=== PATIENT | male | born 1950 | race Caucasian/White ===

== ENCOUNTER 2023-02-06 13:56 | Observation (INO) | payer OTHER, SELFPAY ==
[2023-02-06 13:57] VITALS: BP 150/71; PULSE 105; RESP 14; TEMP 36; O2SAT 98
[2023-02-06 14:00] VITALS: BMI 31.5
--- NOTE | 2023-02-06 14:12 | CT_ITS ---
HISTORY: headache, paresthesia. TECHNIQUE: Multiple axial images were obtained of the head without intravenous contrast. A radiation dose optimization technique was used for this scan. 259 images. COMPARISON: None. FINDINGS: BRAIN PARENCHYMA: Mild posterior occipital hypodensity bilaterally. Multiple foci and zones of low attenuation in the bilateral cerebral white matter compatible with chronic small vessel ischemic gliosis. No acute intra-axial hemorrhage identified. CSF SPACES: Generalized volume loss. No midline shift or other significant mass effect. No acute extra-axial hemorrhage seen. OTHER: Intact calvarium. Mild left maxillary sinus polypoid mucosal thickening. Unremarkable orbits. CT/Brain/Head without Contrast IMPRESSION: Mild posterior cerebral hypodensity, possible acute hypertensive encephalopathy or age-indeterminate infarct. No acute intracranial hemorrhage identified. Chronic involutional and white matter changes. Electronically Signed: Elissa Eaton MD at 14:46 EDT ,
--- NOTE | 2023-02-06 14:12 | EKG12_ITS ---
Test Reason : CP Blood Pressure : / mmHG Vent. Rate : 105 BPM Atrial Rate : 105 BPM P-R Int : 098 ms QRS Dur : 102 ms QT Int : 378 ms P-R-T Axes : 024 003 059 degrees QTc Int : 499 ms Sinus tachycardia with short [place] with frequent Premature ventricular complexes Nonspecific ST and T wave abnormality Abnormal ECG Confirmed by ALMA OVIEDO, JOHN ([id number]), editorial cartoonist MARIA ELENA CELESTE ([id number]) on 02/08/2023 1:24:51 PM Referred By: Confirmed By:JOHN MARQUEZ MD
[2023-02-06 14:26] LABS: Absolute Lymphocyte Count 2.51 X10^3/uL (0.83-4.51); Absolute Neutrophil Count 5.5 X10^3/uL (2.0-7.7); Basophil# 0.06 X10^3/uL; Basophil% 0.7 % (0-1); Eosinophil# 0.19 X10^3/uL; Eosinophils% 2.1 % (0-5); Hematocrit 40.3 % (40-54); Hemoglobin 14.1 g/dL (13.0-16.5); Lymphocyte # 2.51 X10^3/ul (0.83-4.51); Lymphocyte % 27.8 % (19-41); Mean Corpuscular Hgb 30.3 pg (27.0-32.0); Mean Corpuscular Volume 86.7 fL (80-94); Mean Platelet Vol. 9.3 fl (6.2-12.0); Monocyte# 0.75 X10^3/uL; Monocyte% 8.3 % (0-10); NRBC Flagged by Analyzer 0 % (0-5); Neutrophil # 5.48 X10^3/uL (2.7-7.7); Neutrophil % 60.8 % (47-70); Platelet Count 312 K/mm3 (150-450); RBC Distribution Width CV 13.3 % (11.6-14.6); RBC Distribution Width SD 41.9 fl (35.1-43.9); Red Blood Count 4.65 M/mm3 (4.6-6.2)
--- NOTE | 2023-02-06 14:33 | EDS_ITS ---
HPI <KAYLAN Rivas - Last Filed: 02/06/23 16:15> History of Present Illness Chief Complaint: Chest Pain Narrative Narrative: 73-year-old male with PMH of HTN, HLD, glaucoma, hypothyroidism presents with multiple complaints. 3 days ago he developed pain in his right eye and intermittent sharp pain in the right side of his head. Yesterday the pain moved to his left eye and the left face felt numb. Today his left arm feels numb. He also reports chest pain but then describes it as numbness and cannot really give details. He denies shortness of breath, nausea or vomiting, cough or upper respiratory symptoms, or diaphoresis. He denies vision loss or diplopia or motor changes. No difficulty with balance or coordination. No history of stroke or TIA. He is not on blood thinners. PFSH <KAYLAN Rivas - Last Filed: 02/06/23 16:15> [facility] Medical History (Updated 02/06/23 @ 16:14 by KAYLAN Rivas) Hypertension Hypothyroidism Home Medications Levothyroxine 100 mcg PO DAILY 05/29/15 [History Last Taken 06/07/15 05:00] aspirin 81 mg chewable tablet 81 mg PO QHS 05/29/15 [History Last Taken Unknown] ergocalciferol (vitamin D2) 1,250 mcg (50,000 unit) capsule (Vitamin D2) 50,000 unit PO MO 05/29/15 [History Last Taken Unknown] lisinopril 20 mg tablet 10 mg PO DAILY 05/29/15 [History Last Taken 06/07/15 05:00] metoprolol tartrate 50 mg tablet 25 mg PO .morning 05/29/15 [History Last Taken 06/07/15 05:00] multivitamin with folic acid 400 mcg tablet (Thera) 1 tab PO DAILY 05/29/15 [History Last Taken Unknown] terazosin 2 mg capsule 10 mg PO QHS 05/29/15 [History Last Taken Unknown] rosuvastatin 5 mg sprinkle capsule 5 mg PO .COMPLEX 02/06/23 [History Last Taken Unknown] Allergy/AdvReac Type Severity Reaction Status Date / Time atorvastatin calcium AdvReac Pain in Verified 02/06/23 14:00 [From Lipitor] joints azathioprine [From Imuran] AdvReac Nausea Verified 02/06/23 14:00 azathioprine sodium AdvReac Nausea Verified 02/06/23 14:00 [From Imuran] celecoxib [From Celebrex] AdvReac Nausea Verified 02/06/23 14:00 Social History Smoking Status: Former smoker ROS <KAYLAN Rivas - Last Filed: 02/06/23 16:15> ROS ED ROS Narrative Constitutional: Negative for fever, chills, malaise. ENT: Negative for sore throat, ear pain, rhinorrhea. CVS: As noted for chest pain. Negative for palpitations, syncope. Respiratory: Negative for shortness of breath, cough, orthopnea. GI: Negative for abdominal pain, nausea, vomiting, diarrhea, constipation, melena, hematochezia. Neuro: Negative for headache. Skin: Negative for rash. EXAM <KAYLAN Rivas - Last Filed: 02/06/23 16:15> Physical Exam Narrative Exam Narrative: CONST: Patient sitting in no acute distress. EYES: Normal inspection. PERRLA, EOMI. No visual field deficit. ENT: Normal inspection, moist mucous membranes. NECK: Normal inspection. RESP: No respiratory distress, CTAB. CVS: Regular rate and rhythm, no murmur, no gallop. ABD: Soft and nontender, no guarding or rebound, nondistended. SKIN: Color normal, no rash, warm, dry, intact. EXTREMITIES: Normal appearance, no pedal edema. NEURO: Oriented x4. No upper or lower extremity drift, 5/5 strength and normal sensation in face arms and legs, normal [id number] and [id number]-vf-[id number] bilaterally, normal gait, no aphasia or dysarthria, no extinction, NIH equals 0. PSYCH: Normal affect. Const Vital Signs: 02/06/23 13:57 02/06/23 14:08 Temperature 96.8 F L Temperature Source Temporal Pulse Rate 105 H Respiratory Rate 14 Respiratory Effort Normal Non-Labored Blood Pressure 150/71 H Blood Pressure Mean 97 Pulse Ox 98 Oxygen Delivery Method Room Air <Dr. Po Sutton, DO - Last Filed: 02/06/23 16:27> Physical Exam Const Vital Signs: 02/06/23 13:57 02/06/23 14:08 Temperature 96.8 F L Temperature Source Temporal Pulse Rate 105 H Respiratory Rate 14 Respiratory Effort Normal Non-Labored Blood Pressure 150/71 H Blood Pressure Mean 97 Pulse Ox 98 Oxygen Delivery Method Room Air [facility] <KAYLAN Rivas - Last Filed: 02/06/23 16:15> [facility] Narrative Medical decision making narrative: Patient presents with multiple complaints including bilateral eye pain, occasional sharp head pain, and left facial and left arm paresthesias. He appears well and nontoxic. BP is 150/71, heart rate 95-1 05, otherwise normal vital signs. On exam he has no neurological deficits and NIH is 0. His screening medical exam is benign. EKG is sinus tachycardia with frequent PVCs. It does not meet STEMI criteria. His first troponin is 112 and 2-hour delta is pending. He states he has no chest pain today. He is actually been describing his chest symptoms as pain but then also a numb sensation. Due to neurological complaints a CT brain was obtained and shows posterior cerebral hypodensity possibly age-indeterminate infarct. Patient will require admission for CVA work-up and further evaluation of cardiac enzymes Case discussed with the hospitalist for admission. Differential: TIA CVA, peripheral neuropathy Consults: Hospitalist Lab Data Attestation: I reviewed the patient's lab results. Labs: Laboratory Results - last 24 hr 02/06/23 14:10 WBC 9.0 RBC 4.65 Hgb 14.1 Hct 40.3 MCV 86.7 MCH 30.3 MCHC 35.0 RDW Std Deviation 41.9 RDW Coeff of Dean 13.3 Plt Count 312 MPV 9.3 Immature Gran % (Auto) 0.300 Neut % (Auto) 60.8 Lymph % (Auto) 27.8 [place] % (Auto) 8.3 Eos % (Auto) 2.1 Baso % (Auto) 0.7 Absolute Neuts (auto) 5.5 Absolute Lymphs (auto) 2.51 Nucleated RBC % 0 Sodium 135 L Potassium 3.7 Chloride 105 Carbon Dioxide 21.0 Anion Gap 9 BUN 23 H Creatinine 1.52 H Estim Creat Clear Calc 46.80 Est GFR (MDRD) Af Amer 58 L Est GFR (MDRD) Non-Af 48 L BUN/Creatinine Ratio 15.1 Glucose 109 H Calcium 9.1 Troponin I High Sens 112 H Radiography Diagnostic Testing: Clinical Impression(s) from Imaging Studies Brain CT 02/06/23 14:12 IMPRESSION: Mild posterior cerebral hypodensity, possible acute hypertensive encephalopathy or age-indeterminate infarct. No acute intracranial hemorrhage identified. Chronic involutional and white matter changes. Electronically Signed: Elissa Eaton MD at 14:46 EDT , Chest X-Ray 02/06/23 14:40 IMPRESSION: Mild left basilar atelectasis or inflammation. Electronically Signed: Elissa Eaton MD at 15:13 EDT , ED attending interpretation of 2- view chest x-ray shows normal heart size, no large infiltrate, edema, or effusion. <Dr. Po Sutton, DO - Last Filed: 02/06/23 16:27> [facility] Narrative Medical decision making narrative: Patient presents with multiple complaints including bilateral eye pain, occasional sharp head pain, and left facial and left arm paresthesias. He appears well and nontoxic. BP is 150/71, heart rate 95-1 05, otherwise normal vital signs. On exam he has no neurological deficits and NIH is 0. His screening medical exam is benign. EKG is sinus tachycardia with frequent PVCs. It does not meet STEMI criteria. His first troponin is 112 and 2-hour delta is pending. He states he has no chest pain today. He is actually been describing his chest symptoms as pain but then also a numb sensation. Due to neurological complaints a CT brain was obtained and shows posterior cerebral hypodensity possibly age-indeterminate infarct. Patient will require admission for CVA work-up and further evaluation of cardiac enzymes Case discussed with the hospitalist for admission. Differential: TIA CVA, peripheral neuropathy Consults: Hospitalist This patient was seen with a PA/[employer] [place] [employer] Individually assessed they patient including history and physical. I have reviewed everything on the chart that is available and agree with the documentation provided by the PA/[employer] [place] [employer] including discussion about the assessment, treatment plan, discussion, and return precautions. Patient presenting with multiple complaints. Includes both headache pain and bilateral eye pain. Is also complaining of facial numbness and left arm paresthesias. His NIH is actually 0. Stroke cardiac work-up was obtained. CT brain was ordered and it does show possible age-indeterminate stroke. CBC was normal. BMP also unremarkable. High-sensitivity troponin came back at 112 and states he is having chest pain and abnormal CT we did opted to admit him. Expressed to the hospitalist for admission. Lab Data Labs: Laboratory Results - last 24 hr 02/06/23 14:10 WBC 9.0 RBC 4.65 Hgb 14.1 Hct 40.3 MCV 86.7 MCH 30.3 MCHC 35.0 RDW Std Deviation 41.9 RDW Coeff of Dean 13.3 Plt Count 312 MPV 9.3 Immature Gran % (Auto) 0.300 Neut % (Auto) 60.8 Lymph % (Auto) 27.8 [place] % (Auto) 8.3 Eos % (Auto) 2.1 Baso % (Auto) 0.7 Absolute Neuts (auto) 5.5 Absolute Lymphs (auto) 2.51 Nucleated RBC % 0 Sodium 135 L Potassium 3.7 Chloride 105 Carbon Dioxide 21.0 Anion Gap 9 BUN 23 H Creatinine 1.52 H Estim Creat Clear Calc 46.80 Est GFR (MDRD) Af Amer 58 L Est GFR (MDRD) Non-Af 48 L BUN/Creatinine Ratio 15.1 Glucose 109 H Calcium 9.1 Troponin I High Sens 112 H Radiography Diagnostic Testing: Clinical Impression(s) from Imaging Studies Brain CT 02/06/23 14:12 IMPRESSION: Mild posterior cerebral hypodensity, possible acute hypertensive encephalopathy or age-indeterminate infarct. No acute intracranial hemorrhage identified. Chronic involutional and white matter changes. Electronically Signed: Elissa Eaton MD at 14:46 EDT , Chest X-Ray 02/06/23 14:40 IMPRESSION: Mild left basilar atelectasis or inflammation. Electronically Signed: Elissa Eaton MD at 15:13 EDT , Discharge Plan Dx/Rx/DC Orders Clinical Impression: Elevated troponin, Arm paresthesia, left, Abnormal brain CT Disposition Disposition: Acute Care Hospital [facility] Discharge Date/Time: 02/06/23 15:33
--- NOTE | 2023-02-06 14:40 | RAD_ITS ---
HISTORY: chest pain. TECHNIQUE: XR Chest 2 Views. COMPARISON: None. FINDINGS: CARDIOMEDIASTINAL BORDERS: Cardiac silhouette within normal limits in size. Mediastinal contour unremarkable. LUNGS: Mild linear left basilar opacities. PLEURA: No pleural effusion or pneumothorax seen. OSSEOUS STRUCTURES: Degenerative changes. RAD/Chest PA and Lateral IMPRESSION: Mild left basilar atelectasis or inflammation. Electronically Signed: Elissa Eaton MD at 15:13 EDT ,
[2023-02-06 14:42] LABS: Anion Gap 9 (5-15); BUN 23 mg/dL (7-18); BUN/Creat Ratio 15.1 RATIO (10-20); Calcium,Total 9.1 mg/dL (8.5-10.1); Chloride 105 mmol/L (98-107); Creatinine, Serum 1.52 mg/dL (0.70-1.30); EST Glomerular Filtration Rate 48 mL/min (>60); Est Glom Filt Rate - Afr Amer 58 mL/min (>60); Glucose 109 mg/dL (74-106); Potassium 3.7 mmol/L (3.5-5.1); Sodium Level 135 mmol/L (136-145); Troponin-I HS 112 pg/mL (3.0-78.0)
--- NOTE | 2023-02-06 15:22 | ED.RN ---
CATIE WAS CONTACTED AND IS AWARE OF PT BEING ADMITTED, IS TO CALL BACK.
[2023-02-06 15:29] VITALS: BP 154/75; PULSE 84; RESP 18; TEMP 36; O2SAT 96
--- NOTE | 2023-02-06 15:32 | PCM.HP.STD ---
HPI - General General Date of Admission: 02/06/23 Date of Service: 02/06/23 Chief Complaint: Multiple symptoms including numbness of right side of face than left side along with chest discomfort HPI Narrative SHANTEL ALONSO, is a 73 M who presents to ED for multiple complaints. He said he had pain first in the right eye and then moved to the left eye for about 1 week. Buckeye fluid accompanied pain over right side of forehead which then moved to the left side. 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 He then started having numbness on right side yesterday which is moved to the left side of the numbness. He said feels chest discomfort mainly xiphisternum, localized 2-3/6 intensity on exertion along with shortness of breath mainly on exertion and relieved at rest suspicious for angina. He has this symptom for about 2 weeks. 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 Denies associated symptoms of dizziness, numbness or diaphoresis. He had water around the heart, most likely pericardial effusion for which he required drainage/probably pericardiocentesis about and at that time he quit smoking and drinking alcohol. Prior to that he has been smoking 3 packs/day since teenage. Denies irregular bowel movement or burning micturition. No nausea vomiting or GI bleed. No fever. Past medical history hypertension, hypothyroidism polymyositis and pericarditis in 1996. Social history: Quit alcohol 1998. Started smoking 3 packs/day at young age 87 as a teenager and then quit in 1996. Family history: Her mother and father had cancer. [facility] Medical History Hypertension Hypothyroidism Home Medications Levothyroxine 100 mcg PO DAILY 05/29/15 [History Last Taken 06/07/15 05:00] aspirin 81 mg chewable tablet 81 mg PO QHS 05/29/15 [History Last Taken Unknown] ergocalciferol (vitamin D2) 1,250 mcg (50,000 unit) capsule (Vitamin D2) 50,000 unit PO MO 05/29/15 [History Last Taken Unknown] lisinopril 20 mg tablet 10 mg PO DAILY 05/29/15 [History Last Taken 06/07/15 05:00] metoprolol tartrate 50 mg tablet 25 mg PO .morning 05/29/15 [History Last Taken 06/07/15 05:00] multivitamin with folic acid 400 mcg tablet (Thera) 1 tab PO DAILY 05/29/15 [History Last Taken Unknown] terazosin 2 mg capsule 10 mg PO QHS 05/29/15 [History Last Taken Unknown] rosuvastatin 5 mg sprinkle capsule 5 mg PO .COMPLEX 02/06/23 [History Last Taken Unknown] Allergy/AdvReac Type Severity Reaction Status Date / Time atorvastatin calcium AdvReac Pain in Verified 02/06/23 14:00 [From Lipitor] joints azathioprine [From Imuran] AdvReac Nausea Verified 02/06/23 14:00 azathioprine sodium AdvReac Nausea Verified 02/06/23 14:00 [From Imuran] celecoxib [From Celebrex] AdvReac Nausea Verified 02/06/23 14:00 Social History Smoking Status: Former smoker ROS ROS Narrative Complete 14 ROS as per the patient and described in HPI No fever. No acute cough, URI, nausea, vomiting, diarrhea, hematemesis melena or GI bleed. History of BPH but no acute obstructive symptoms. History of polymyositis Denies burning micturition or alteration of bowel habit. Rest 14 ROS are negative except as mentioned HPI Vital Signs Vital Signs Vital Signs: 02/06/23 13:57 02/06/23 14:08 Temperature 96.8 F L Temperature Source Temporal Pulse Rate 105 H Respiratory Rate 14 Respiratory Effort Normal Non-Labored Blood Pressure 150/71 H Blood Pressure Mean 97 Pulse Ox 98 Oxygen Delivery Method Room Air Weight Weight: 232 lb 12.93 oz Body Mass Index (BMI) 31.5 Physical Exam Narrative General: Alert, Oriented x3, Cooperative HEENT: Atraumatic, PERRLA, EOMI, Normocephalic. No diplopia/quadrantanopsia hemianopia or anopia. Color vision intact. Mild increased intraocular pressure on palpation in both eyes. Oral: Oral mucosa moist. No Gingival or Mucosal Lesions/ Ulcerations Neck: Supple, No JVD, Negative Carotid Bruits Lungs: Air entry diminished in bilateral lung bases. No crepitation/rhonchi Cardiovascular: Regular rate, Regular Rhythm, Normal S1, Normal S2, No murmurs Abdomen: Bowel Sounds Present, Soft, Non Tender, Non-Distended : No renal angle tenderness. No suprapubic tenderness. Extremities: No edema, Capillary Refill Less than 3 Seconds Skin: No rashes, No breakdown Musculoskeletal: No Tenderness to Palpation of Joints or Extremities. ROM full and intact. Neurological: Cranial nerves II-XII grossly intact, DTR 2+/4. No acute focal neurological deficit. NIH stroke scale 0. Psych/Mental Status: Normal Affect, Appropriate. Results Lab / Micro Data 02/06/23 14:10 02/06/23 14:10 Labs: Laboratory Results - last 24 hr 02/06/23 14:10: WBC 9.0, RBC 4.65, Hgb 14.1, Hct 40.3, MCV 86.7, MCH 30.3, MCHC 35.0, RDW Std Deviation 41.9, RDW Coeff of Dean 13.3, Plt Count 312, MPV 9.3, Immature Gran % (Auto) 0.300, Neut % (Auto) 60.8, Lymph % (Auto) 27.8, [place] % (Auto) 8.3, Eos % (Auto) 2.1, Baso % (Auto) 0.7, Absolute Neuts (auto) 5.5, Absolute Lymphs (auto) 2.51, Nucleated RBC % 0, Sodium 135 L, Potassium 3.7, Chloride 105, Carbon Dioxide 21.0, Anion Gap 9, BUN 23 H, Creatinine 1.52 H, Estim Creat Clear Calc 46.80, Est GFR (MDRD) Af Amer 58 L, Est GFR (MDRD) Non-Af 48 L, BUN/Creatinine Ratio 15.1, Glucose 109 H, Calcium 9.1, Troponin I High Sens 112 H Radiology Impression Brain CT 02/06/23 14:12 IMPRESSION: Mild posterior cerebral hypodensity, possible acute hypertensive encephalopathy or age-indeterminate infarct. No acute intracranial hemorrhage identified. Chronic involutional and white matter changes. Electronically Signed: Elissa Eaton MD at 14:46 EDT , Chest X-Ray 02/06/23 14:40 IMPRESSION: Mild left basilar atelectasis or inflammation. Electronically Signed: Elissa Eaton MD at 15:13 EDT , Assessment & Plan Assessment/Plan (1) Unstable angina: (2) Left facial numbness: PLAN: Plan 1. Facial numbness suspicious for acute TIA/strokelike symptoms: Patient is being admitted in PCU. PT, OT, speech therapy/swallow evaluation and management, nursing NIH stroke scale, BP and glucose monitoring and control as per stroke protocol. TSH, A1c fasting lipid profile tomorrow AM. MRI brain and 2D echo with bubble contrast study ordered. Carotid Doppler ordered. Patient has increased creatinine therefore CT angiogram or MRA was not ordered. 2. Recent unstable angina with elevated troponin: JENNY risk score 4. First troponin 112. Cycle troponin enzymes. Depending upon troponins either stress test or patient will go for cardiac cath but patient creatinine is elevated therefore will wait for creatinine to get better. 2D echo with contrast ordered. Aspirin 325 mg was given in ED. Patient is on baby aspirin, carvedilol, nitro sublingual as needed. Patient has atorvastatin listed as allergy with pain in the joints. Patient is low-dose dose rosuvastatin and therefore continued. TSH and fasting lipid profile ordered. 3. Elevated creatinine unclear acute or chronic. BUN 23, creatinine 1.52, BUN/creatinine ratio 15.1. Probably chronic. IV fluid normal saline with 20 mEq IV KCl ordered. Monitor kidney function electrolytes. Mild hyponatremia sodium 135. 4. Mild hyperglycemia glucose 109: A1c ordered for tomorrow AM. 5. Hypertension: Patient on lisinopril 10 mg daily. Blood pressure is elevated. Hold lisinopril because of elevated creatinine. IV hydralazine ordered for systolic blood pressure more than 180 ABG 6. Other comorbidities include history of polymyositis,, BPH, hypothyroidism: TSH and free T4 ordered for tomorrow AM. Living will/advanced directive/end of life care: Patient does not have living will or advanced directive. Patient is not a danger to power of employment attorney for health. After discussion of benefits/risks procedures involved with full code, DNR CC arrest and DNR CC, the patient opted for DNRCC arrest with no intubation Patient doesn't want artificial life support including intubation, tube feed, ventilator and/chest compression, central venous catheter, vasopressor and DC shock if needed Total time spent in [id number] encounter in discussion of advanced directive 17 minutes. Laboratory Results 02/06/23 14:10: WBC 9.0, RBC 4.65, Hgb 14.1, Hct 40.3, MCV 86.7, MCH 30.3, MCHC 35.0, RDW Std Deviation 41.9, RDW Coeff of Dean 13.3, Plt Count 312, MPV 9.3, Immature Gran % (Auto) 0.300, Neut % (Auto) 60.8, Lymph % (Auto) 27.8, [place] % (Auto) 8.3, Eos % (Auto) 2.1, Baso % (Auto) 0.7, Absolute Neuts (auto) 5.5, Absolute Lymphs (auto) 2.51, Nucleated RBC % 0 Sodium 135 L, Potassium 3.7, Chloride 105, Carbon Dioxide 21.0, Anion Gap 9, BUN 23 H, Creatinine 1.52 H, Estim Creat Clear Calc 46.80, Est GFR (MDRD) Af Amer 58 L, Est GFR (MDRD) Non-Af 48 L, BUN/Creatinine Ratio 15.1, Glucose 109 H, Calcium 9.1, Troponin I High Sens 112 H Charges/Coding Visit Charges Inpatient E&M: 34264 Init Hosp L3 Procedures Hospitalists Procedures: 54027 Advncd Care Plan 30 Min
[2023-02-06 15:48] VITALS: BMI 30.9
--- NOTE | 2023-02-06 15:55 | ECHOD_ITS ---
Reason For Study: CVA Procedure This was a 2D Doppler, Color Flow transthoracic echocardiogram. Exam performed in department. Left Ventricle Normal LV size. Moderate concentric left ventricular hypertrophy. Left ventricular systolic function is normal. The estimated ejection fraction is 60 %. Stage 1 diastolic dysfunction. No regional wall motion abnormalities noted. Right Ventricle Normal RV size. Normal systolic function. Atria Normal left atrium. Normal right atrium. Bubble contrast study negative for right to left interatrial shunt. Mitral Valve Normal mitral valve. Tricuspid Valve Normal tricuspid valve. Aortic Valve Normal aortic valve. Pulmonic Valve Normal pulmonic valve. Great Vessels Normal aortic root. The pulmonary artery is normal size. Normal inferior vena cava. Pericardium/Pleural No pericardial effusion. Medication Performed a rapid injection of agitated mix of 9 cc saline and 1cc air to assess for atrial septal defect. MMode/2D Measurements & Calculations LVIDd: 5.7 cm IVSd: 1.5 cm LVOT diam: 2.7 cm LVIDs: 5.0 cm LVPWd: 1.6 cm FS: 11.9 % LVOT area: 5.5 cm2 Ao root diam: 4.4 cm LAV(MOD-bp): 52.2 ml LVAd ap4: 28.2 cm2 LAV(MOD-bp) Indexed: 23.2 ml/m2 LVLd ap4: 7.6 cm LAV(MOD-sp2): 66.1 ml EDV(MOD-sp4): 93.4 ml LAV(MOD-sp4): 40.6 ml EDV(sp4-el): 89.3 ml LVAs ap4: 17.3 cm2 LVLs ap4: 7.0 cm ESV(MOD-sp4): 37.4 ml ESV(sp4-el): 36.3 ml EF(MOD-sp4): 59.9 % EF(sp4-el): 59.3 % SV(MOD-sp4): 56.0 ml SV(sp4-el): 53.0 ml LA A4 area: 17.2 cm2 LA dimension(2D): 4.7 cm RA A4 area: 14.3 cm2 TAPSE: 2.0 cm Time Measurements MV dec time: 0.09 sec Doppler Measurements & Calculations MV E max anant: 50.2 cm/sec Lat Peak E' Anant: 4.0 cm/sec Med Peak E' Anant: 7.5 cm/sec MV A max anant: 86.8 cm/sec E/E' lat: 12.4 E/E' med: 6.7 MV E/A: 0.58 MV V2 max: 108.8 cm/sec MV dec slope: 789.4 cm/sec2 Ao V2 max: 82.1 cm/sec MV max P.7 mmHg Ao max P.7 mmHg MV V2 mean: 57.1 cm/sec Ao V2 mean: 49.4 cm/sec MV mean P.8 mmHg Ao mean P.3 mmHg MV V2 VTI: 18.7 cm Ao V2 VTI: 15.9 cm MVA(VTI): 3.4 cm2 AV (velocity ratio): 0.71 XENIA(I,D): 3.9 cm2 XENIA(V,D): 4.8 cm2 LV V1 max: 71.7 cm/sec SV(LVOT): 62.8 ml PA V2 max: 95.3 cm/sec LV V1 max P.1 mmHg PA V2 mean: 68.3 cm/sec LV V1 mean P.84 mmHg LV V1 mean: 42.3 cm/sec LV V1 VTI: 11.3 cm ECHO/Echo Complete Interpretation Summary Normal LV size. Left ventricular systolic function is normal. The estimated ejection fraction is 60 %. No regional wall motion abnormalities noted. Bubble contrast study negative for right to left interatrial shunt. Moderate concentric left ventricular hypertrophy. Stage 1 diastolic dysfunction. Ordering Physician: Hermann Guy Referring Physician: [facility] Performed By: Joanie Camacho RCS
--- NOTE | 2023-02-06 15:55 | CDU_ITS ---
Reason For Study: CVA Rt. Velocities/BP Lt. Velocities/BP Prox CCA 133.9/17 cm/sec. Prox CCA 174.1/26.1 cm/sec. Mid CCA 163.1/16 cm/sec. Mid CCA 152.1/18.8 cm/sec. Dist CCA 72.8/10.2 cm/sec. Dist CCA 126.6/20.6 cm/sec. Prox ICA 99.4/13.8 cm/sec. Prox ICA 85/15.7 cm/sec. Mid ICA 110.4/24.8 cm/sec. Mid ICA 97.1/24.5 cm/sec. Dist ICA 101/27.9 cm/sec. Dist ICA 85/17.9 cm/sec. Rt. ICA/CCA = 0.82. Lt. ICA/CCA = 0.64. Prox ECA 156.5 cm/sec. Prox ECA 68.5 cm/sec. Rt. Vert. 23.3/3.7 cm/sec. Lt. Vert. 69.6/19 cm/sec. Right Extracranial There is heterogeneous, irregular atherosclerotic plaque noted in the right common carotid artery. There is heterogeneous, irregular atherosclerotic plaque noted in the right internal carotid artery. There is heterogeneous, irregular atherosclerotic plaque noted in the right external carotid artery. Antegrade flow is noted in the right vertebral artery. Left Extracranial There is heterogeneous, irregular atherosclerotic plaque noted in the left common carotid artery. There is heterogeneous, irregular atherosclerotic plaque noted in the left internal carotid artery. There is heterogeneous, irregular atherosclerotic plaque noted in the left external carotid artery. Antegrade flow is noted in the left vertebral artery. Procedure Carotid Duplex [id number]. This is a Carotid Duplex examination using B-mode, color flow and specral Doppler. Exam performed portable in patient room. VL/Carotid Duplex Ultrasound Interpretation Summary Mild (<50%) stenosis right extracranial internal carotid. Mild (<50%) stenosis left extracranial internal carotid. Patent and antegrade vertebrals bilaterally. Ordering Physician: Hermann Guy Referring Physician: [facility] Performed By: Roya Workman RVT
--- NOTE | 2023-02-06 15:55 | EKG12_ITS ---
Test Reason : AM EKG Blood Pressure : / mmHG Vent. Rate : 069 BPM Atrial Rate : 069 BPM P-R Int : 158 ms QRS Dur : 108 ms QT Int : 440 ms P-R-T Axes : 072 027 069 degrees QTc Int : 471 ms Normal sinus rhythm Low voltage QRS ST & T wave abnormality, consider anterior ischemia Prolonged QT Abnormal ECG When compared with ECG of 06-FEB-2023 16:39, MANUAL COMPARISON REQUIRED, DATA IS UNCONFIRMED Confirmed by ALMA OVIEDO, JOHN ([id number]), newspaper managing editor MARIA ELENA CELESTE ([id number]) on 02/09/2023 9:44:06 AM Referred By: TARYN Confirmed By:JOHN MARQUEZ MD
[2023-02-06 15:56] VITALS: BP 146/71; PULSE 84; RESP 17; TEMP 36.5; O2SAT 95
[2023-02-06] MEDS: Aspirin 81 MG TAB.CHEW 324 MG PO (16:43)
[2023-02-06] MEDS: KCL 20MEQ in 0.9% NS 20 MEQ/1,000 ML IV.SOLN. 75 MEQ IV (16:44)
[2023-02-06 17:03] LABS: Phosphorus 2.8 mg/dL (2.5-4.9)
[2023-02-06 17:07] VITALS: BMI 30.9
[2023-02-06 17:19] LABS: Magnesium 2.2 mg/dL (1.6-2.6); Troponin-I HS 121 pg/mL (3.0-78.0)
[2023-02-06] MEDS: Enoxaparin 40 MG/0.4 ML Syringe SC (17:37)
[2023-02-06] MEDS: Enoxaparin 60 MG/0.6 ML Syringe SC (19:02)
[2023-02-06 19:55] VITALS: BP 159/70; PULSE 77; RESP 16; TEMP 36.3; O2SAT 95
[2023-02-06 20:25] VITALS: O2SAT 99
[2023-02-06 21:01] LABS: Troponin-I HS 115 pg/mL (3.0-78.0)
[2023-02-06] MEDS: Acetaminophen 325 MG Tablet 650 MG PO (22:05)
[2023-02-06 23:48] VITALS: BP 142/74; PULSE 70; RESP 16; TEMP 36.1; O2SAT 98
[2023-02-07 00:13] LABS: Bedside Glucose 85 mg/dL (74-106)
[2023-02-07 00:42] VITALS: BMI 30.9
[2023-02-07 03:46] VITALS: BP 132/63; PULSE 73; RESP 16; TEMP 36.3; O2SAT 95
[2023-02-07] MEDS: KCL 20MEQ in 0.9% NS 20 MEQ/1,000 ML IV.SOLN. 75 MEQ IV (05:08)
[2023-02-07] MEDS: Acetaminophen 325 MG Tablet 650 MG PO ×3 (05:09→20:48)
[2023-02-07] MEDS: Levothyroxine 100 MCG Tablet PO (05:09)
[2023-02-07] MEDS: Enoxaparin 100 MG/ML Syringe SC (05:09)
[2023-02-07 05:30] LABS: Absolute Lymphocyte Count 1.87 X10^3/uL (0.83-4.51); Absolute Neutrophil Count 3.2 X10^3/uL (2.0-7.7); Basophil# 0.05 X10^3/uL; Basophil% 0.8 % (0-1); Eosinophil# 0.26 X10^3/uL; Eosinophils% 4.4 % (0-5); Hematocrit 39.1 % (40-54); Hemoglobin 13.1 g/dL (13.0-16.5); Lymphocyte # 1.87 X10^3/ul (0.83-4.51); Lymphocyte % 31.4 % (19-41); Mean Corp Hgb Conc 33.5 g/dL (32-36); Mean Corpuscular Volume 89.5 fL (80-94); Mean Platelet Vol. 9.5 fl (6.2-12.0); Monocyte# 0.54 X10^3/uL; Monocyte% 9.1 % (0-10); NRBC Flagged by Analyzer 0 % (0-5); Neutrophil # 3.21 X10^3/uL (2.7-7.7); Platelet Count 272 K/mm3 (150-450); RBC Distribution Width CV 13.4 % (11.6-14.6); RBC Distribution Width SD 43.8 fl (35.1-43.9); Red Blood Count 4.37 M/mm3 (4.6-6.2)
[2023-02-07 06:09] VITALS: BP 151/66; PULSE 80; RESP 18; TEMP 36.2; O2SAT 95
[2023-02-07 06:10] LABS: Anion Gap 7 (5-15); BUN 17 mg/dL (7-18); BUN/Creat Ratio 15.6 RATIO (10-20); Calcium,Total 8.7 mg/dL (8.5-10.1); Chloride 110 mmol/L (98-107); Cholesterol 110 mg/dL (200); Creatinine, Serum 1.09 mg/dL (0.70-1.30); EST Glomerular Filtration Rate 70 mL/min (>60); Est Glom Filt Rate - Afr Amer 85 mL/min (>60); Estimated Creatinine Clearance 65.26 ml/min; Glucose 88 mg/dL (74-106); High Density Lipoprotein 36 mg/dL; Potassium 3.9 mmol/L (3.5-5.1); Sodium Level 138 mmol/L (136-145); T4 Free Direct 1.37 ng/dL (0.76-1.46); Thyroid Stim Hormone (TSH) 0.67 uIU/mL (0.358-3.74); Triglycerides 87 mg/dL; Very Low Density Lipoprotein 17 mg/dL (5-40)
[2023-02-07 06:59] VITALS: O2SAT 96
[2023-02-07 07:37] LABS: Hemoglobin A1c 5.6 % (3.8-5.6)
[2023-02-07 10:00] VITALS: BP 152/69; PULSE 83; RESP 16; TEMP 36.6; O2SAT 97
--- NOTE | 2023-02-07 10:00 | MRI_ITS ---
HISTORY: suspected acute stroke, facial numbness, extremity numbness. TECHNIQUE: Multiplanar and multisequence MR images of the brain were obtained without contrast. 285 images. COMPARISON: CT prior day. FINDINGS: BRAIN PARENCHYMA: Very mild periventricular white matter changes. No abnormal focus of restricted diffusion. No acute intracranial hemorrhage identified. CSF SPACES: Mild generalized volume loss. No significant midline shift or other mass effect.No extra-axial fluid collection. VASCULAR SYSTEM: Major intracranial flow voids are maintained. PARANASAL SINUSES AND MASTOID AIR CELLS: Small left maxillary sinus mucous retention cysts. Trace air in the left mastoid air cells. ORBITS: Bilateral lens resections. MRI/Brain without Contrast IMPRESSION: No evidence for acute infarct. Very mild chronic involutional and white matter changes. Electronically Signed: Elissa Eaton MD at 11:49 EDT ,
[2023-02-07] MEDS: Aspirin 81 MG TAB.CHEW PO (10:08)
[2023-02-07] MEDS: Multivitamins,Therapeutic Tablet 1 TABLET PO (10:08)
--- NOTE | 2023-02-07 10:19 | PCM.CONS.C ---
Assessment & Plan Assessment/Plan (1) Elevated troponin: PLAN: He does have a mildly elevated troponin with atypical chest discomfort as well as other symptomatology. With no EKG changes and no definitive chest discomfort my recommendation will be to pursue a noninvasive strategy with a stress test and an echocardiogram. Depending on the findings further recommendations will be made. This has been discussed with him the risk benefits alternatives and he understands and agrees to proceed. Thank you for allowing me to participate in the care of your patient. Please don't hesitate to call if any issues arise. HPI Consult Data Date of Consult: 02/07/23 HPI Narrative HPI Narrative: SHANTEL ALONSO, is a 73 M who presents with a history of hypertension hyperlipidemia glaucoma who started complaining of right eye pain intermittent sharp pain on the right side of his head as well as chest discomfort. He also had some left arm numbness. It is difficult to pin him down with details. He says that he is also a victim of agent orange. He has had no dizziness or diaphoresis no near syncope or syncope he was evaluated in the emergency room his EKG did not demonstrate any changes but his cardiac enzymes were mildly elevated and cardiology was called for further evaluation and management. He says that he had a previous reaction to stress test when he had a number of years ago but cannot tell us exactly what. He has not had any more chest pain since admission. [facility] Medical History Hypertension Hypothyroidism Home Medications Levothyroxine 100 mcg PO DAILY 05/29/15 [History Last Taken 06/07/15 05:00] aspirin 81 mg chewable tablet 81 mg PO QHS 05/29/15 [History Last Taken Unknown] ergocalciferol (vitamin D2) 1,250 mcg (50,000 unit) capsule (Vitamin D2) 50,000 unit PO MO 05/29/15 [History Last Taken Unknown] lisinopril 20 mg tablet 10 mg PO DAILY 05/29/15 [History Last Taken 06/07/15 05:00] metoprolol tartrate 50 mg tablet 25 mg PO .morning 05/29/15 [History Last Taken 06/07/15 05:00] multivitamin with folic acid 400 mcg tablet (Thera) 1 tab PO DAILY 05/29/15 [History Last Taken Unknown] terazosin 2 mg capsule 10 mg PO QHS 05/29/15 [History Last Taken Unknown] rosuvastatin 5 mg sprinkle capsule 5 mg PO .COMPLEX 02/06/23 [History Last Taken Unknown] Allergy/AdvReac Type Severity Reaction Status Date / Time atorvastatin calcium AdvReac Pain in Verified 02/06/23 14:00 [From Lipitor] joints azathioprine [From Imuran] AdvReac Nausea Verified 02/06/23 14:00 azathioprine sodium AdvReac Nausea Verified 02/06/23 14:00 [From Imuran] celecoxib [From Celebrex] AdvReac Nausea Verified 02/06/23 14:00 Social History Smoking Status: Former smoker ROS Constitutional Constitutional: Denies fever(s) or weight loss Eyes Eyes: Reports systems reviewed and no addt'l complaints, except as documented ENT HEENT: Reports systems reviewed and no addt'l complaints, except as documented Cardiovascular Cardiovascular: Denies chest pain at rest, chest pain with activity, dyspnea at rest, dyspnea on exertion, edema, palpitations or paroxysmal nocturnal dyspnea Respiratory/Chest Respiratory/Chest: Denies dyspnea on exertion, productive cough, shortness of breath at rest or shortness of breath with exertion Gastrointestinal Gastrointestinal: Denies change in bowel habits, nausea, vomiting or weight changes Genitourinary Genitourinary: Denies difficulty urinating Musculoskeletal Musculoskeletal: Denies joint stiffness or muscle weakness Integumentary Integumentary: Denies lesions Neurologic Neurologic: Denies dizziness or syncope Psychiatric Psychiatric: Denies anxiety Endocrine Endocrinology: Denies excessive sweating or fatigue Hematologic/Lymphatic Hematologic/Lymphatic: Denies anemia Allergic/Immunologic Allergic/Immunologic: Denies seasonal rhinorrhea Risk Stratification Risk Stratification Applicable: No Objective Data Vital Signs: Vital Signs Temp Pulse Resp BP Pulse Ox O2 Del Method 97.9 F 83 16 152/69 H 97 Room Air 02/07/23 10:00 02/07/23 10:00 02/07/23 10:00 02/07/23 10:00 02/07/23 10:00 02/07/23 10:00 Oxygen Delivery Method Room Air Weight: 228 lb 6.382 oz Body Mass Index (BMI) 30.9 Intake & Output: Intake and Output for Last 24 Hours 02/05/23 02/06/23 02/07/23 23:59 23:59 23:59 Intake Total 400 / 400 1302.5 / 1302.5 Balance 400 / 400 1302.5 / 1302.5 Lab / Micro Data 02/07/23 05:05 02/07/23 05:05 Labs: Laboratory Results - last 24 hr 02/06/23 14:10: WBC 9.0, RBC 4.65, Hgb 14.1, Hct 40.3, MCV 86.7, MCH 30.3, MCHC 35.0, RDW Std Deviation 41.9, RDW Coeff of Dean 13.3, Plt Count 312, MPV 9.3, Immature Gran % (Auto) 0.300, Neut % (Auto) 60.8, Lymph % (Auto) 27.8, Coffee % (Auto) 8.3, Eos % (Auto) 2.1, Baso % (Auto) 0.7, Absolute Neuts (auto) 5.5, Absolute Lymphs (auto) 2.51, Nucleated RBC % 0, Sodium 135 L, Potassium 3.7, Chloride 105, Carbon Dioxide 21.0, Anion Gap 9, BUN 23 H, Creatinine 1.52 H, Estim Creat Clear Calc 46.80, Est GFR (MDRD) Af Amer 58 L, Est GFR (MDRD) Non-Af 48 L, BUN/Creatinine Ratio 15.1, Glucose 109 H, Calcium 9.1, Troponin I High Sens 112 H 02/06/23 16:30: Phosphorus 2.8, Magnesium 2.2, Troponin I High Sens 121 H* 02/06/23 20:28: Troponin I High Sens 115 H 02/06/23 23:53: POC Glucose 85 02/07/23 05:05: WBC 6.0, RBC 4.37 L, Hgb 13.1, Hct 39.1 L, MCV 89.5, MCH 30.0, MCHC 33.5, RDW Std Deviation 43.8, RDW Coeff of Dean 13.4, Plt Count 272, MPV 9.5, Immature Gran % (Auto) 0.300, Neut % (Auto) 54.0, Lymph % (Auto) 31.4, Coffee % (Auto) 9.1, Eos % (Auto) 4.4, Baso % (Auto) 0.8, Absolute Neuts (auto) 3.2, Absolute Lymphs (auto) 1.87, Nucleated RBC % 0, Sodium 138, Potassium 3.9, Chloride 110 H, Carbon Dioxide 21.0, Anion Gap 7, BUN 17, Creatinine 1.09, Estim Creat Clear Calc 65.26, Est GFR (MDRD) Af Amer 85, Est GFR (MDRD) Non-Af 70, BUN/Creatinine Ratio 15.6, Glucose 88, Hemoglobin A1c 5.6, Calcium 8.7, Triglycerides 87, Cholesterol 110, LDL Cholesterol 57, VLDL Cholesterol 17, HDL Cholesterol 36 L, TSH 0.67, Free T4 1.37 Cardiology Labs/Tests 02/06/23 14:10: WBC 9.0, RBC 4.65, Hgb 14.1, Hct 40.3, MCV 86.7, MCH 30.3, MCHC 35.0, Plt Count 312, MPV 9.3, Immature Gran % (Auto) 0.300, Neut % (Auto) 60.8, Lymph % (Auto) 27.8, Coffee % (Auto) 8.3, Eos % (Auto) 2.1, Baso % (Auto) 0.7, Absolute Neuts (auto) 5.5, Nucleated RBC % 0, Sodium 135 L, Potassium 3.7, Chloride 105, Carbon Dioxide 21.0, Anion Gap 9, BUN 23 H, Creatinine 1.52 H, Est GFR (MDRD) Af Amer 58 L, Est GFR (MDRD) Non-Af 48 L, BUN/Creatinine Ratio 15.1, Glucose 109 H, Calcium 9.1 02/06/23 16:30: Phosphorus 2.8, Magnesium 2.2 02/07/23 05:05: WBC 6.0, RBC 4.37 L, Hgb 13.1, Hct 39.1 L, MCV 89.5, MCH 30.0, MCHC 33.5, Plt Count 272, MPV 9.5, Immature Gran % (Auto) 0.300, Neut % (Auto) 54.0, Lymph % (Auto) 31.4, Coffee % (Auto) 9.1, Eos % (Auto) 4.4, Baso % (Auto) 0.8, Absolute Neuts (auto) 3.2, Nucleated RBC % 0, Sodium 138, Potassium 3.9, Chloride 110 H, Carbon Dioxide 21.0, Anion Gap 7, BUN 17, Creatinine 1.09, Est GFR (MDRD) Af Amer 85, Est GFR (MDRD) Non-Af 70, BUN/Creatinine Ratio 15.6, Glucose 88, Hemoglobin A1c 5.6, Calcium 8.7, Triglycerides 87, Cholesterol 110, LDL Cholesterol 57, VLDL Cholesterol 17, HDL Cholesterol 36 L Rhythm: EKG: ECHO: Stress Test: Cardiac Cath: PCI: CT Surgery: Holter monitor: EPS: PPM: CXR: Chest CT Scan: Radiography Diagnostic Testing: Radiology Impression Brain CT 02/06/23 14:12 IMPRESSION: Mild posterior cerebral hypodensity, possible acute hypertensive encephalopathy or age-indeterminate infarct. No acute intracranial hemorrhage identified. Chronic involutional and white matter changes. Electronically Signed: Elissa Eaton MD at 14:46 EDT , Chest X-Ray 02/06/23 14:40 IMPRESSION: Mild left basilar atelectasis or inflammation. Electronically Signed: Elissa Eaton MD at 15:13 EDT ,
[2023-02-07] MEDS: Carvedilol 6.25 MG Tablet PO ×2 (11:57→20:48)
--- NOTE | 2023-02-07 14:05 | PN_ITS ---
Subjective Subjective Patient seen and examined. He complained of some numbness over his cheeks bilaterally. He denied any dizziness, lightheadedness, palpitations, chest pain or any other symptoms. Review of systems was otherwise negative. Objective Data Objective Data Vital Signs: Vital Signs Temp Pulse Resp BP Pulse Ox O2 Del Method 97.9 F 83 16 152/69 H 97 Room Air 02/07/23 10:00 02/07/23 10:00 02/07/23 10:00 02/07/23 10:00 02/07/23 10:00 02/07/23 10:00 Oxygen Delivery Method Room Air Weight: 228 lb 6.382 oz Body Mass Index (BMI) 30.9 Intake & Output: Intake and Output for Last 24 Hours 02/05/23 02/06/23 02/07/23 23:59 23:59 23:59 Intake Total 400 / 400 1302.5 / 1302.5 Balance 400 / 400 1302.5 / 1302.5 Lab / Micro Data 02/07/23 05:05 02/07/23 05:05 Labs: Laboratory Results - last 24 hr 02/06/23 14:10: WBC 9.0, RBC 4.65, Hgb 14.1, Hct 40.3, MCV 86.7, MCH 30.3, MCHC 35.0, RDW Std Deviation 41.9, RDW Coeff of Dean 13.3, Plt Count 312, MPV 9.3, Immature Gran % (Auto) 0.300, Neut % (Auto) 60.8, Lymph % (Auto) 27.8, [place] % (Auto) 8.3, Eos % (Auto) 2.1, Baso % (Auto) 0.7, Absolute Neuts (auto) 5.5, Absolute Lymphs (auto) 2.51, Nucleated RBC % 0, Sodium 135 L, Potassium 3.7, Chloride 105, Carbon Dioxide 21.0, Anion Gap 9, BUN 23 H, Creatinine 1.52 H, Estim Creat Clear Calc 46.80, Est GFR (MDRD) Af Amer 58 L, Est GFR (MDRD) Non-Af 48 L, BUN/Creatinine Ratio 15.1, Glucose 109 H, Calcium 9.1, Troponin I High Sens 112 H 02/06/23 16:30: Phosphorus 2.8, Magnesium 2.2, Troponin I High Sens 121 H* 02/06/23 20:28: Troponin I High Sens 115 H 02/06/23 23:53: POC Glucose 85 02/07/23 05:05: WBC 6.0, RBC 4.37 L, Hgb 13.1, Hct 39.1 L, MCV 89.5, MCH 30.0, MCHC 33.5, RDW Std Deviation 43.8, RDW Coeff of Dean 13.4, Plt Count 272, MPV 9.5, Immature Gran % (Auto) 0.300, Neut % (Auto) 54.0, Lymph % (Auto) 31.4, [place] % (Auto) 9.1, Eos % (Auto) 4.4, Baso % (Auto) 0.8, Absolute Neuts (auto) 3.2, Absolute Lymphs (auto) 1.87, Nucleated RBC % 0, Sodium 138, Potassium 3.9, Chloride 110 H, Carbon Dioxide 21.0, Anion Gap 7, BUN 17, Creatinine 1.09, Estim Creat Clear Calc 65.26, Est GFR (MDRD) Af Amer 85, Est GFR (MDRD) Non-Af 70, BUN/Creatinine Ratio 15.6, Glucose 88, Hemoglobin A1c 5.6, Calcium 8.7, Triglycerides 87, Cholesterol 110, LDL Cholesterol 57, VLDL Cholesterol 17, HDL Cholesterol 36 L, TSH 0.67, Free T4 1.37 Radiography Diagnostic Testing: Radiology Impression Brain CT 02/06/23 14:12 IMPRESSION: Mild posterior cerebral hypodensity, possible acute hypertensive encephalopathy or age-indeterminate infarct. No acute intracranial hemorrhage identified. Chronic involutional and white matter changes. Electronically Signed: Elissa Eaton MD at 14:46 EDT , Chest X-Ray 02/06/23 14:40 IMPRESSION: Mild left basilar atelectasis or inflammation. Electronically Signed: Elissa Eaton MD at 15:13 EDT , Brain MRI 02/07/23 10:00 IMPRESSION: No evidence for acute infarct. Very mild chronic involutional and white matter changes. Electronically Signed: Elissa Eaton MD at 11:49 EDT Reading Location ID and State: [facility] / [place] Tel , Service support , Physical Exam Const alert, oriented x3 and no apparent distress General Appearance: cooperative HEENT head/scalp atraumatic, moist oral mucous membranes and oropharynx normal Neck no lymphadenopathy, supple and no JVD Resp normal respiratory effort, normal air movement and clear to auscultation bilaterally Cardio regular rate, regular rhythm, S1 normal heart sound, S2 normal heart sound and no murmurs GI normal to inspection, nondistended, normoactive bowel sounds, soft to palpation, non-tender and non-distended Extremity normal capillary refill, no clubbing, cyanosis or edema and no calf tenderness Skin General Skin Exam: no breakdown Neuro CN's II-XII intact bilaterally, no focal motor deficits, no sensory deficits noted and deep tendon reflexes 2+ bilaterally Psych thought process normal, cooperative and affect normal Appearance: appropriate Assessment & Plan Assessment/Plan (1) Elevated troponin: (2) Left facial numbness: PLAN: Plan #Probable TIA * Complained of facial numbness. It started on the right and then went to the left. 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 * CT of the brain done was negative for any evidence of stroke. He did have an MRI today which was also negative for stroke. * PT.OT on board. On aspirin 81mg daily * CTA head and neck showed no evidence of stroke. * #Chest pain * he did have mildly elevated troponins. Didnt have any chest pain at time of review * SL nitroglycerin prn. PO aspirin 81mg daily * cardiology consulted. For stress test tomorrow. * on carvedilol * #Elevated Cr: resolved #Hypertension; on lisinopril which was held due to elevated Cr. Will resume in light of resolution of elevated Cr. Also on on carvedilol #Hypothyroidism: on synthroid #BPH: on flomax #History of polymyositis: stable DVT prophylaxis: on lovenox Charges/Coding Visit Charges Inpatient E&M: 55940 Subs Hosp L2
[2023-02-07 15:45] VITALS: BMI 30.9
[2023-02-07 16:05] VITALS: BP 156/80; PULSE 72; RESP 17; TEMP 36.6; O2SAT 97
[2023-02-07] MEDS: Doxazosin 4 MG Tablet 8 MG PO (20:48)
[2023-02-07 21:22] VITALS: BP 146/74; PULSE 70; RESP 16; TEMP 36.4; O2SAT 94
[2023-02-08 03:20] VITALS: BP 140/75; PULSE 78; RESP 18; TEMP 36.4; O2SAT 94
[2023-02-08 05:31] VITALS: BP 148/63; PULSE 73; RESP 16; TEMP 36.3; O2SAT 93; BMI 31.0
[2023-02-08] MEDS: Acetaminophen 325 MG Tablet 650 MG PO (05:45)
[2023-02-08] MEDS: Multivitamins,Therapeutic Tablet 1 TABLET PO (05:47)
[2023-02-08] MEDS: Levothyroxine 100 MCG Tablet PO (05:47)
[2023-02-08] MEDS: Ergocalciferol 1.25 MG (50, 000 UNIT) Capsule PO (05:47)
[2023-02-08] MEDS: Lisinopril 10 MG Tablet PO (05:47)
[2023-02-08] MEDS: Aspirin 81 MG TAB.CHEW PO (05:48)
--- NOTE | 2023-02-08 05:55 | EKG12_ITS ---
Test Reason : ADMISSION Blood Pressure : / mmHG Vent. Rate : 086 BPM Atrial Rate : 086 BPM P-R Int : 164 ms QRS Dur : 108 ms QT Int : 380 ms P-R-T Axes : 046 009 028 degrees QTc Int : 454 ms Normal sinus rhythm T wave abnormality, consider anterior ischemia Abnormal ECG When compared with ECG of 06-FEB-2023 14:04, MANUAL COMPARISON REQUIRED, DATA IS UNCONFIRMED Confirmed by ALMA OVIEDO, JOHN ([id number]), news copy editor MARIA ELENA CELESTE ([id number]) on 02/09/2023 9:45:12 AM Referred By: CHANGE Confirmed By:JOHN MARQUEZ MD
[2023-02-08 06:00] VITALS: BMI 31.1
[2023-02-08 06:16] LABS: Absolute Lymphocyte Count 1.66 X10^3/uL (0.83-4.51); Absolute Neutrophil Count 3.2 X10^3/uL (2.0-7.7); Basophil# 0.05 X10^3/uL; Basophil% 0.9 % (0-1); Eosinophil# 0.26 X10^3/uL; Eosinophils% 4.5 % (0-5); Hematocrit 40.9 % (40-54); Hemoglobin 13.8 g/dL (13.0-16.5); Lymphocyte # 1.66 X10^3/ul (0.83-4.51); Mean Corp Hgb Conc 33.7 g/dL (32-36); Mean Corpuscular Hgb 30.2 pg (27.0-32.0); Mean Corpuscular Volume 89.5 fL (80-94); Mean Platelet Vol. 9.8 fl (6.2-12.0); Monocyte# 0.51 X10^3/uL; Monocyte% 8.9 % (0-10); NRBC Flagged by Analyzer 0 % (0-5); Neutrophil # 3.23 X10^3/uL (2.7-7.7); Neutrophil % 56.5 % (47-70); Platelet Count 309 K/mm3 (150-450); RBC Distribution Width CV 13.3 % (11.6-14.6); RBC Distribution Width SD 43.5 fl (35.1-43.9); Red Blood Count 4.57 M/mm3 (4.6-6.2); White Blood Count 5.7 K/mm3 (4.4-11.0)
[2023-02-08 06:51] LABS: Anion Gap 6 (5-15); BUN 14 mg/dL (7-18); BUN/Creat Ratio 13.3 RATIO (10-20); Calcium,Total 9.1 mg/dL (8.5-10.1); Chloride 106 mmol/L (98-107); Creatinine, Serum 1.05 mg/dL (0.70-1.30); EST Glomerular Filtration Rate 73 mL/min (>60); Est Glom Filt Rate - Afr Amer 89 mL/min (>60); Estimated Creatinine Clearance 67.75 ml/min; Glucose 84 mg/dL (74-106); Sodium Level 135 mmol/L (136-145)
[2023-02-08 09:20] VITALS: BP 150/77; PULSE 84; RESP 16; TEMP 36.3; O2SAT 96
[2023-02-08 09:45] VITALS: O2SAT 95
--- NOTE | 2023-02-08 13:28 | DS.PCM_ITS ---
Providers Date of Admission: 02/06/23 Date of Discharge: 02/08/23 Primary Care Physician: DC Hospital Consultations 02/06/23 18:19 Consult: Cardiology Routine Consulting Provider: Vivek Bhagat Reason for Consult: Unstable angina/NSTEMI EMERGENT Consult: No MD Notified: Yes Date Notified: 02/06/23 Time Notified: 18:19 Method of Notification: Verbal Reason For Visit: MULTIPLE SYMPTOMS Diagnosis Discharge Diagnosis (1) Elevated troponin: Status: Acute Code(s): R77.8 - Other specified abnormalities of plasma proteins (2) Left facial numbness: Status: Acute Code(s): R20.0 - Anesthesia of skin Plan #Probable TIA * Complained of facial numbness. It started on the right and then went to the left. 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 * CT of the brain done was negative for any evidence of stroke. He did have an MRI today which was also negative for stroke. * PT.OT on board. On aspirin 81mg daily * CTA head and neck showed no evidence of stroke. * #Chest pain * he did have mildly elevated troponins. Didnt have any chest pain at time of review * SL nitroglycerin prn. PO aspirin 81mg daily * cardiology consulted. For stress test tomorrow. * on carvedilol * #Elevated Cr: resolved #Hypertension; on lisinopril which was held due to elevated Cr. Will resume in light of resolution of elevated Cr. Also on on carvedilol #Hypothyroidism: on synthroid #BPH: on flomax #History of polymyositis: stable DVT prophylaxis: on lovenox Medications at Discharge Home Medications Levothyroxine 100 mcg PO DAILY 05/29/15 aspirin 81 mg chewable tablet 81 mg PO QHS 05/29/15 ergocalciferol (vitamin D2) 1,250 mcg (50,000 unit) capsule (Vitamin D2) 50,000 unit PO MO 05/29/15 lisinopril 20 mg tablet 10 mg PO DAILY 05/29/15 multivitamin with folic acid 400 mcg tablet (Thera) 1 tab PO DAILY 05/29/15 terazosin 2 mg capsule 10 mg PO QHS 05/29/15 rosuvastatin 5 mg sprinkle capsule 5 mg PO .COMPLEX 02/06/23 carvedilol 6.25 mg tablet 6.25 mg PO BID #60 tabs 02/08/23 Hospital Course Operations None Procedures Stress test Summary of Care Provided Minutes Spent on Discharge: 44 Hospital Course: Patient is a 73-year-old male with a past medical history as outlined was admitted through the ED with a series of vague complaints. He complained of numbness on the right side of his face which then went to the left side. He also said he had had pain in his right eye and then moved to the left eye for about a week prior to admission. He had seen an service aide a few days before he was given eyedrops for glaucoma. He also complained of some chest pain which was retrosternal and said it was worsened with exertion. He said he had had it for about 2 weeks. Review of symptoms otherwise negative. He was admitted to rule out a stroke and chest pain to rule out ACS. He had CT of the brain which showed no acute intracranial pathology. Troponins wre slightly elevated. MRI of the brain also showed no evidence of a stroke. Cardiology was consulted and patient had a stress test which showed no evidence of ischemia. Of note his troponins were not elevated and EKG showed no acute ST changes. Patient essentially remained stable and was discharged home on 02/08/2023. He is to follow-up with his primary care doctor within 1 to 2 weeks. Patient seen and examined prior to discharge. He had no complaints and had an uneventful night. Review of systems otherwise negative. Labs and vitals reviewed. Home medication reviewed and reconciled. Physical Exam Const alert, oriented x3 and no apparent distress General Appearance: cooperative and comfortable HEENT normocephalic, head/scalp atraumatic, hearing grossly normal bilaterally, moist oral mucous membranes and oropharynx normal Mouth: oral and palatal mucosa normal Eyes PERRL, EOMs intact bilaterally and conjunctivae normal Neck no lymphadenopathy, supple and no JVD Resp normal respiratory effort, normal air movement, no retractions, no use of accessory muscles and clear to auscultation bilaterally Cardio regular rate, regular rhythm, S1 normal heart sound, S2 normal heart sound and no murmurs GI normal to inspection, nondistended, normoactive bowel sounds, soft to palpation, non-tender and non-distended Extremity normal to inspection, full ROM, normal capillary refill, no clubbing, cyanosis or edema and no calf tenderness Skin no rashes or lesions noted, no wounds and skin turgor normal General Skin Exam: no breakdown Neuro oriented x3, CN's II-XII intact bilaterally, moves all extremities, no focal motor deficits, no sensory deficits noted and deep tendon reflexes 2+ bilaterally Sensorium / Orientation: awake and alert Motor Exam: strength 5/5 throughout Psych thought process normal, cooperative and affect normal Appearance: appropriate Weight / BMI Weight Weight: 229 lb 11.547 oz Body Mass Index (BMI) 31.1 ABG / Lab / Microbiology Data 02/08/23 05:34 02/08/23 05:34 Laboratory: Laboratory Results - last 24 hr 02/08/23 05:34: WBC 5.7, RBC 4.57 L, Hgb 13.8, Hct 40.9, MCV 89.5, MCH 30.2, MCHC 33.7, RDW Std Deviation 43.5, RDW Coeff of Dean 13.3, Plt Count 309, MPV 9.8, Immature Gran % (Auto) 0.200, Neut % (Auto) 56.5, Lymph % (Auto) 29.0, Daniels % (Auto) 8.9, Eos % (Auto) 4.5, Baso % (Auto) 0.9, Absolute Neuts (auto) 3.2, Absolute Lymphs (auto) 1.66, Nucleated RBC % 0, Sodium 135 L, Potassium 4.0, Chloride 106, Carbon Dioxide 23.0, Anion Gap 6, BUN 14, Creatinine 1.05, Estim Creat Clear Calc 67.75, Est GFR (MDRD) Af Amer 89, Est GFR (MDRD) Non-Af 73, BUN/Creatinine Ratio 13.3, Glucose 84, Calcium 9.1 Radiography Diagnostic Testing: Radiology Impression Carotid Duplex 02/06/23 15:55 Interpretation Summary Mild (<50%) stenosis right extracranial internal carotid. Mild (<50%) stenosis left extracranial internal carotid. Patent and antegrade vertebrals bilaterally. Ordering Physician: Hermann Guy Referring Physician: [facility] Performed By: Roya Workman, RVT Echocardiogram 02/06/23 15:55 Interpretation Summary Normal LV size. Left ventricular systolic function is normal. The estimated ejection fraction is 60 %. No regional wall motion abnormalities noted. Bubble contrast study negative for right to left interatrial shunt. Moderate concentric left ventricular hypertrophy. Stage 1 diastolic dysfunction. Ordering Physician: Hermann Guy Referring Physician: [facility] Performed By: Joanie Camacho RCS D/C Instructions Discharge Diet: Low fat / Low cholesterol Discharge Activity: Return to Normal Activity Weight Bearing Status: Weight bearing as tolerated Call your doctor if you observe: Fever of 101 or Higher, Shortness of breath, Dizziness, Swelling in the ankles, Chest pain and Increased palpitations (irregular heartbeat) Meaningful Use Info Meaningful Use Diagnoses (Choose all that apply): None applicable Discharge Plan Admission Admit Date/Time: 02/06/23 15:08 Primary Reason for Your Visit: chest pain Attending Provider: Dorys Woods Primary Care Provider: [facility],[place] Consulting Providers: Vivek Bhagat; Hermann Guy Instructions Patient Instructions: Chest Pain O Discharge Orders/Prescriptions Prescriptions: New carvedilol 6.25 mg Tablet 6.25 mg PO BID Qty: 60 2RF Continued lisinopril 20 MG tablet 10 mg PO DAILY terazosin 2 MG capsule 10 mg PO QHS aspirin 81 MG tablet,chewable 81 mg PO QHS ergocalciferol (vitamin D2) [Vitamin D2] 50,000 UNIT capsule 50,000 unit PO MO Patient Comments: WEDNESDAY multivitamin with folic acid [Thera] 1 TABLET tablet 1 tab PO DAILY Levothyroxine 100 mcg PO DAILY rosuvastatin 5 mg capsule, sprinkle 5 mg PO .COMPLEX Rx Instructions: 5 mg orally wednesday, wednesday, wednesday; Discontinued metoprolol tartrate 50 MG tablet 25 mg PO .morning Rx Instructions: patient takes 12.5 mg at bedtime Referrals / Follow Up: Vivek Bhagat MD [Med Staff - Active Staff] - Within 1 Month [facility] [Primary Care Provider] - Within 2 Weeks Disposition Disposition (needs filled in before D/C Order can be placed): Home, Self Care Charges/Coding Visit Charges Inpatient E&M: 44791 Disch Hosp >30min
--- NOTE | 2023-02-08 13:28 | CASEMGMT ---
CARLOS CM in to complete AYERS form with patient. RN SHAHRIAR explained AYERS form to patient, patient voiced understanding. Patient signed AYERS form and filed in chart. Patient provided with copy of signed AYERS Form. Patient had no further questions or concerns at this time.
[2023-02-08 13:36] LABS: Bedside Glucose 84 mg/dL (74-106)
--- NOTE | 2023-02-08 14:49 | STRESSREP ---
Stress Test Report Pharmacologic myocardial perfusion stress test. 73-year-old male with a history of chest pain Resting EKG demonstrates sinus rhythm with a rate of 81 bpm. Frequent premature ventricular complexes are present. Resting blood pressure is 150/68 mmHg. 0.4 mg of regadenoson was infused per usual protocol followed by rapid intravenous saline flush injection. Continuous EKG monitoring was performed. The maximum heart rate was 102 bpm which was 69% of max impacted heart rate the maximum workload was 1 metabolic equivalent. At rest there were no ST or T wave changes noted to suggest ischemia and at peak infusion nonspecific ST changes were noted which did not meet the criteria for ischemia. No clinical angina is noted. The final blood pressure was 152/64 mmHg. Myocardial perfusion protocol. 11.6 mCi of technetium 99m sestamibi was injected at rest. 0.4 mg of regadenoson was infused per usual protocol. At peak infusion 34.8 mCi of technetium 99m sestamibi was injected stress images were obtained stress and rest images were reconstructed and compared in the short axis vertical long and horizontal long axis. Gated images were also obtained. Perfusion SPECT analysis: Review of the stress images demonstrate normal uptake of tracer noted in all areas of the myocardium. The resting images similar demonstrated normal uptake of tracer noted in all areas of the myocardium. No areas of reversibility are noted to suggest ischemia and no previous infarct is noted. Gated SPECT analysis: The gated ejection fraction is 55%. Conclusion: Normal pharmacologic myocardial perfusion stress test. Preserved ejection fraction.
[2023-02-08 15:03] VITALS: BP 161/88; PULSE 91; RESP 18; TEMP 36.6; O2SAT 93
--- NOTE | 2023-02-08 15:23 | PHA.DC.MC.R ---
Pharmacy [facility] has performed discharge medication reconciliation and counseling for this patient. Duplicate carvedilol because one was rejected by pharmacy. 1. CARVEDILOL 6.25MG PO BID The patient's discharge medication list was reviewed for discrepancies and discrepancies were resolved. The patient was counseled on the following discharge medications and changes in medications for homegoing were reviewed. The Reason for Use, instructions for use, and potential side effects were reviewed for all new medications. The patient's questions regarding all of their medications were answered. The patient was able to verbally demonstrate an understanding of their discharge medications. Patient counseled by pharmacy delivery driverSherine. Medications at Discharge Home Medications Levothyroxine 100 mcg PO DAILY 05/29/15 aspirin 81 mg chewable tablet 81 mg PO QHS 05/29/15 ergocalciferol (vitamin D2) 1,250 mcg (50,000 unit) capsule (Vitamin D2) 50,000 unit PO MO 05/29/15 lisinopril 20 mg tablet 10 mg PO DAILY 05/29/15 multivitamin with folic acid 400 mcg tablet (Thera) 1 tab PO DAILY 05/29/15 terazosin 2 mg capsule 10 mg PO QHS 05/29/15 rosuvastatin 5 mg sprinkle capsule 5 mg PO .COMPLEX 02/06/23 carvedilol 6.25 mg tablet 6.25 mg PO BID #60 tabs 02/08/23 carvedilol 6.25 mg tablet 6.25 mg PO BID #60 tabs 02/08/23
--- NOTE | 2023-02-08 15:53 | CHAPLAIN ---
Type of Pastoral Visit _x__ Initial Visit ___ Follow-up Visit ___ On-call Visit ___ General Patient Visit ___ Spiritual Assessment ___ Family Conference ___ Bereavement ___ Rapid Response ___ Code Blue ___ Other (describe below) Pastoral Care Referral From _x__ Patient ___ Family ___ Nurse ___ Physician ___ Corporation Secretary ___ Marine Tower Operator ___ Other (describe below) Sacrament/Intervention _x__ Active listening ___ Anointing ___ Mandaen ___ Bereavement ___ Communion ___ Vani exploration ___ _x__ Life review _x__ Prayer ___ Reconciliation ___ Sacrament of Sick _x__ Supportive presence ___ Wedding ___ Other (describe below) Pastoral Comments patient is waiting on test results; pt by his own admission is eager to talk and enjoys company; pt just hopes to have good news; pt describes his living now since his is ; pt expects visit from a grandson soon; 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
== END 2023-02-08 13:49 | disposition home or self-care (01) ==
LOC: ED 14:50 → PCU 15:28
PROVIDERS: Physician Assistant; Admitting Provider Internal Medicine; Emergency Provider Student in an Organized Health Care Education/Training Program; Visit Provider Student in an Organized Health Care Education/Training Program
DX: I20.0 Unstable angina (principal); M33.20 Polymyositis, organ involvement unspecified; R20.2 Paresthesia of skin; E78.5 Hyperlipidemia, unspecified; R51.9 Headache, unspecified; Z87.891 Personal history of nicotine dependence; R20.0 Anesthesia of skin; I10 Essential (primary) hypertension; H40.9 Unspecified glaucoma; Z79.82 Long term (current) use of aspirin; I49.3 Ventricular premature depolarization; E03.9 Hypothyroidism, unspecified; Z79.899 Other long term (current) drug therapy; Z79.890 Hormone replacement therapy; E87.1 Hypo-osmolality and hyponatremia; R73.9 Hyperglycemia, unspecified; N40.0 Benign prostatic hyperplasia without lower urinary tract symptoms; R79.89 Other specified abnormal findings of blood chemistry; R77.8 Other specified abnormalities of plasma proteins
CPT/HCPCS: 36415; 70450; 70551; 71046; 78452; 80048; 80061; 82962; 83036; 83735; 84100; 84439; 84443; 84484; 85025; 92610; 93005; 93017; 93306; 93880; 94668; 94762; 96360; 96361; 96372; 99221; 99252; 99284; A9500; A4216; G0378; G0463; J2785

== ENCOUNTER → 2023-08-06 | Outpatient (CLI) | payer MEDICARE, OTHER, SELFPAY ==
--- OUTSIDE RECORDS SUMMARY | 2023-08-06 16:23 | XMS RPT_ITS | CCD ---
Author Name Unknown Address [address] [place] [address] Organization [facility] Results Test Name Value Interpretation Reference Range Facil ity Summary Purpose Family History No Family History Records Found Advance Directives No Advanced Directives Records Found Additional Source Comments (unrecognized sect ion and content) No Status Records Found INFORMATION SOURCE (unrecogn ized section and content) FOR RECORDS PERTAINING TO PATIENTS WHO ARE OR HAVE BEEN ENROLLED IN A CHEMICAL DEPENDENCY/SUBSTANCEABUSE PROGRAM, SOME INFORMATION MAY BE OMITTED. This clinical summary was aggregated from multiple sources. Caution should be exercised in using it in the provision of clinical care. This summary normalizes information from multiple sources, and as a consequence, information in this document may materially change the coding, format and clinical context of patient data. In addition, data may be omitted in some cases. CLINICAL DECISIONS SHOULD BE BASED ON THE PRIMARY CLINICAL RECORDS. [employer] provides no warranty or guarantee of the accuracy or completeness of information in this document.
== END | disposition home or self-care (01) ==
LOC: CVS 13:06
PROVIDERS: Referring Provider Nurse Practitioner Gerontology; Visit Provider Nurse Practitioner Gerontology
DX: R03.0 Elevated blood-pressure reading, without diagnosis of hypertension (principal)
CPT/HCPCS: 93788

== ENCOUNTER → 2024-04-04 | Outpatient (CLI) | payer MEDICARE, OTHER, SELFPAY ==
--- NOTE | 2024-04-04 16:27 | STRESSREP ---
Stress Test Report Pharmacologic myocardial perfusion stress test. 74-year-old man with a history of chest pain Resting EKG demonstrates sinus rhythm with ventricular bigeminy with a rate of 83 bpm. Resting blood pressure is 154/68 mmHg. 0.4 mg of regadenoson was infused per usual protocol followed by rapid intravenous saline flush injection. Continuous EKG monitoring was performed. The maximum heart rate was 99 bpm which was 68% of max impacted heart rate the maximum workload was 1 metabolic equivalent. At rest there were no ST or T wave changes noted to suggest ischemia and at peak infusion nonspecific ST changes were noted which did not meet the criteria for ischemia. No clinical angina is noted. The final blood pressure was 170/80 mmHg. Myocardial perfusion protocol. 14.4 mCi of technetium 99m sestamibi was injected at rest. 0.4 mg of regadenoson was infused per usual protocol. At peak infusion 44.8 mCi of technetium 99m sestamibi was injected stress images were obtained stress and rest images were reconstructed and compared in the short axis vertical long and horizontal long axis. Gated images were also obtained. Perfusion SPECT analysis: Review of the stress images demonstrate normal uptake of tracer noted in all areas of the myocardium. The resting images similar demonstrated normal uptake of tracer noted in all areas of the myocardium. No areas of reversibility are noted to suggest ischemia and no previous infarct is noted. Gated SPECT analysis: The gated ejection fraction is 38%. Conclusion: Normal pharmacologic myocardial perfusion stress test. Reduced ejection fraction.
== END | disposition home or self-care (01) ==
PROVIDERS: Referring Provider Nurse Practitioner Gerontology; Visit Provider Nurse Practitioner Gerontology
DX: R07.9 Chest pain, unspecified (principal)
CPT/HCPCS: 78452; 93017; A9500; A4216; J2785

== ENCOUNTER → 2024-04-12 | Outpatient (CLI) | payer MEDICARE, OTHER, SELFPAY ==
--- NOTE | 2024-04-12 06:36 | ECHOD_ITS ---
Reason For Study: CHEST PAIN, HTN Procedure This was a 2D Doppler, Color Flow transthoracic echocardiogram. Exam performed in department. Left Ventricle Moderately dilated left ventricle. Moderate concentric left ventricular hypertrophy. The left ventricular ejection fraction is 50 %. Stage 1 diastolic dysfunction. There is mild global hypokinesis of the left ventricle. Right Ventricle Normal RV size. Normal systolic function. Atria The left atrium is mildly enlarged. The right atrium is moderately enlarged. Mitral Valve Normal mitral valve. Mild (1+) eccentric mitral valve insufficiency. Tricuspid Valve Normal tricuspid valve. Unable to estimate RV systolic pressure due to insufficient tricuspid regurgitant envelope. Aortic Valve Trisinus/trileaflet aortic valve. Mild (1+) aortic valve insufficiency. Pulmonic Valve Normal pulmonic valve. Great Vessels Normal aortic root. The pulmonary artery is normal size. Inferior vena cava collapse with respiration. Pericardium/Pleural No pericardial effusion. MMode/2D Measurements & Calculations LVIDd: 6.4 cm IVSd: 1.4 cm Ao root diam: 3.7 cm LVIDs: 5.2 cm LVPWd: 1.4 cm RVDd: 3.6 cm FS: 18.2 % LAV(MOD-bp): 91.0 ml LVAd ap4: 34.2 cm2 LVAd ap2: 31.1 cm2 LAV(MOD-bp) Indexed: 40.3 ml/m2 LVLd ap4: 8.1 cm LVLd ap2: 7.8 cm LAV(MOD-sp2): 90.3 ml EDV(MOD-sp4): 117.8 ml EDV(MOD-sp2): 103.2 ml LAV(MOD-sp4): 94.6 ml EDV(sp4-el): 123.2 ml EDV(sp2-el): 104.7 ml LVAs ap4: 21.2 cm2 LVAs ap2: 19.8 cm2 LVLs ap4: 6.8 cm LVLs ap2: 6.9 cm ESV(MOD-sp4): 57.7 ml ESV(MOD-sp2): 47.4 ml ESV(sp4-el): 56.7 ml ESV(sp2-el): 48.3 ml EF(MOD-sp4): 51.0 % EF(MOD-sp2): 54.0 % EF(sp4-el): 54.0 % SV(MOD-sp4): 60.2 ml SV(MOD-sp2): 55.7 ml SV(sp4-el): 66.5 ml LA dimension(2D): 5.2 cm LA A4 area: 26.9 cm2 RA A4 area: 24.1 cm2 TAPSE: 2.2 cm Time Measurements MV dec time: 0.19 sec Doppler Measurements & Calculations MV E max ludmila: 52.5 cm/sec MV dec slope: 393.2 cm/sec2 Ao V2 max: 88.3 cm/sec MV A max ludmila: 55.3 cm/sec Ao max P.2 mmHg MV E/A: 0.95 Ao V2 mean: 63.0 cm/sec Ao mean P.8 mmHg Ao V2 VTI: 21.2 cm AV (velocity ratio): 0.74 AI max ludmila: 280.9 cm/sec LV V1 max: 72.6 cm/sec PA V2 max: 58.4 cm/sec AI max P.0 mmHg LV V1 max P.1 mmHg PA V2 mean: 43.3 cm/sec AI dec slope: 147.6 cm/sec2 LV V1 mean P.1 mmHg AI P1/2t: 557.4 msec LV V1 mean: 50.6 cm/sec LV V1 VTI: 15.6 cm ECHO/Echo Complete Interpretation Summary Moderately dilated left ventricle. The left ventricular ejection fraction is 50 %. Stage 1 diastolic dysfunction. Mild (1+) eccentric mitral valve insufficiency. Mild (1+) aortic valve insufficiency. Ordering Physician: Christy Acosta Referring Physician: [facility] Performed By: Stephania Houston, SAMANTHA, RVT
== END | disposition home or self-care (01) ==
LOC: CVS 06:36
PROVIDERS: Referring Provider Nurse Practitioner Gerontology; Visit Provider Nurse Practitioner Gerontology
DX: R07.9 Chest pain, unspecified (principal); I10 Essential (primary) hypertension
CPT/HCPCS: 93306